=== PATIENT | female | born 1935 | race Caucasian/White ===

== ENCOUNTER 2016-10-31 15:02 | Outpatient (CLI) | payer MEDICARE ==
--- NOTE | 2016-10-31 21:45 | RAD ---
LUMBAR SPINE THREE VIEWS 10/31/1617 Grade I spondylolisthesis is seen of L4 on L5 and L5 on S1. There is disc space narrowing and degene rated disc at both of these levels. The etiology of this slippage is probably due to facet arthritis which is prominent here. The other disc spaces are normal in height. No acute fractures are seen. T he SI joints were symmetrical and normal in appearance, as were the hip joints. 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 MRI would be useful in assessing any neural impingement. POS: HOME
== END 2016-10-31 15:03 | disposition home or self-care (01) ==
LOC: BURRAD 15:02
PROVIDERS: ATTEND Family Medicine
DX: M54.5 Low back pain (principal); G89.29 Other chronic pain; M51.36 Other intervertebral disc degeneration, lumbar region
CPT/HCPCS: 72100

== ENCOUNTER 2017-05-10 05:38 | Emergency (ER) | payer MEDICARE ==
[2017-05-10 06:06] LABS: Bilirubin Negative (Negative); Blood, Urine Trace (Negative); Clarity Clear (Clear); Glucose, Urine (Dipstick) Negative (Negative); Leukocyte Trace (Negative); Nitrite Negative (Negative); Protein, Urine (Dipstick) Negative (Neg-Trace); Specific Gravity, Urine 1.015 (1.005-1.030); Urobilinogen 0.2 mg/dL (0.2-1.0); pH, Urine 7.5 (5.0-9.0)
[2017-05-10 06:28] LABS: Bacteria/HPF 1+ HPF (None Seen); RBC/HPF 0-3 HPF (0-3); Squamous Epithelial 0-3 HPF (0-3); WBC/HPF 0-3 HPF (0-3)
[2017-05-10] MEDS ORDERED: Ketorolac Tromethamine 30 MG/ML VIAL ONE (07:35)
--- NOTE | 2017-05-10 22:36 | CT ---
PRELIMINARY REPORT/[facility]/EMERGENCY AFTER HOURS PROCEDURE: EXAM: CT Abdomen and Pelvis Without Intravenous Contrast EXAM DATE/TIME: 05/10/2017 6:44 AM CLINICAL HISTORY: 81 years old, female; Pain; Other: Lt. Flank pain; Additional info: Hematuria TECHNIQUE: Axial computed tomography images of the abdomen and pelvis without intravenous contrast. All CT scan s at this facility use one or more dose reduction techniques, viz.: automated exposure control; ma/k V adjustment per patient size (including targeted exams where dose is matched to indication; i.e. he ad); or iterative reconstruction technique. Coronal and sagittal reformatted images were created and reviewed. COMPARISON: No relevant prior studies available. FINDINGS: Lower thorax: Small hiatal hernia is present. ABDOMEN: Liver: Unremarkable. Gallbladder and bile ducts: Calcified gallstones are present. No ductal dilation. Pancreas: Unremarkable. No ductal dilation. Spleen: Unremarkable. No splenomegaly. Adrenals: Unremarkable. No mass. Kidneys and ureters: Left renal cyst. No obstructing stones. No hydronephrosis. Stomach and bowel: Moderate feces is present throughout the colon. Diverticulosis is present with no CT evidence of diverticulitis. Inflammatory changes are present in the pericolic fat adjacent to pr oximal transverse colon. Diverticuli are present. Findings are compatible with diverticulitis. No ob struction. Appendix: The appendix is seen and is normal in appearance. PELVIS: Bladder: Unremarkable. No stones. Reproductive: Unremarkable as visualized. ABDOMEN and PELVIS: Intraperitoneal space: No abscess or free air identified. No significant fluid collection. Bones/joints: No acute fracture. No dislocation. Soft tissues: Unremarkable. Vasculature: Unremarkable. No abdominal aortic aneurysm. Lymph nodes: Unremarkable. No enlarged lymph nodes. IMPRESSION: 1. Findings compatible with diverticulitis involving the proximal transverse colon. 2. Remainder of findings as described above. Thank you for allowing us to participate in the care of your patient. Dictated and Authenticated by: Cheyenne Villaseñor MD 05/10/2017 7:35 AM Central Time ([place] \T\ [place]) FINAL REPORT CT ABDOMEN AND PELVIS WITH CONTRAST 05/10/[address] of the abdomen and pelvis was performed for evaluation of abdominal pain. Axial slices we re acquired without IV contrast. Coronal and sagittal reconstructions were done. The lung bases are clear. The liver, spleen, pancreas, and abdominal aorta showed no acute findings within the limitations of a non-contrast study. There may be a 1.6 cm fat-filled mass associated w ith the left adrenal gland, but I am not certain. Regarding the kidneys, there are several renal cy sts, particularly in the left kidney. The largest is 4.3 cm in size. There is no hydronephrosis, r enal calculi, or ureteral calculi appreciated. The gallbladder contains at least one large gallston e, if not several. There is a focal area of streaking around the proximal transverse colon where one sees some divertic niyah. Diverticulitis is suggested. Diverticula are seen elsewhere in the colon where there is no in flammatory streaking. There is no sign of obstruction. No free air or free fluid was present. CT of the pelvis shows a distended urinary bladder. There are no adnexal masses, inflammatory cardona es, or free fluid. Degenerative changes are seen in the spine. There is minor anterolisthesis of L4 on L5 which seems to be due to facet arthritis. IMPRESSION: 1. Findings suggestive of diverticulitis involving the proximal transverse colon. 2. Renal cysts, particularly on the left. No acute urinary tract findings. 3. Gallstones. 4. Incidental finding of small hiatal hernia. Report in agreement with preliminary reading by Dustin. POS: HOME
== END 2017-05-10 07:58 | disposition home or self-care (01) ==
LOC: BURERS 05:38
DX: K57.92 Diverticulitis of intestine, part unspecified, without perforation or abscess without bleeding (principal); Z79.82 Long term (current) use of aspirin; Z79.899 Other long term (current) drug therapy
CPT/HCPCS: 74176; 81003; 81015; 96372; J1885

== ENCOUNTER 2017-05-15 15:55 | Outpatient (CLI) | payer MEDICARE ==
--- NOTE | 2017-05-15 20:56 | RAD ---
LEFT KNEE FOUR VIEWS 05/15/17 No fracture or joint effusion was seen. Arthritic changes are minimal for age. Some arterial calcif ications are seen distal to the trifurcation. IMPRESSION: No acute finding. POS: HOME
== END 2017-05-15 15:56 | disposition home or self-care (01) ==
LOC: BURRAD 15:55
PROVIDERS: ATTEND Family Medicine
DX: M25.562 Pain in left knee (principal)

== ENCOUNTER 2021-02-13 19:21 | Emergency (ER) | payer MEDICARE ==
[2021-02-13 20:12] LABS: #Basophils 0.1 thou/uL (0.0-0.2); #Eosinphils 0.4 thou/uL (0.0-0.7); #Lymphocytes 1.7 thou/uL (1.20-3.40); #Neutrophils 5.4 thou/uL (1.40-6.50); %Eosinophils 5.2 % (0.0-10.0); %Monocytes 11.6 % (0.0-10.0); %Neutrophils 62.2 % (42.0-75.0); Hemoglobin 15.4 g/dL (12.0-16.0); Mean Corpuscular HGB CONC 33.2 g/dL (32.0-36.0); Mean Corpuscular Hemoglobin 30.6 pg (27.0-31.0); Mean Corpuscular Volume 92.1 fL (78.0-98.0); Mean Platelet Volume 8.7 fL (7.4-10.4); Platelet Count 190 thou/uL (130-400); Red Blood Cell (RBC) Count 5.05 mill/uL (4.20-5.40); White Blood Cell (WBC) Count 8.7 thou/uL (4.8-10.8)
[2021-02-13 20:26] LABS: ALT (SGPT) 17 U/L (8-55); AST (SGOT) 19 U/L (5-34); Albumin 4.3 g/dL (3.4-4.8); Alkaline Phosphatase 97 U/L (40-110); Anion Gap 17 mmol/L (10-20); BUN (Urea Nitrogen) 15 mg/dL (9.8-20.1); Bilirubin, Total 0.6 mg/dL (0.2-1.2); Calc. Creatinine Clearance 0 mL/min (70-130); Calcium 10.4 mg/dL (7.8-10.44); Carbon Dioxide 26 mmol/L (23-31); Chloride 103 mmol/L (98-107); Globulin 3.4 g/dL (2.4-3.5); Glucose 98 mg/dL (83-110); Potassium 5.2 mmol/L (3.5-5.1); Protein, Total 7.7 g/dL (5.8-8.1); Sodium 141 mmol/L (136-145)
[2021-02-13] MEDS ORDERED: predniSONE 20 MG TAB ONE (21:03)
== END 2021-02-13 21:12 | disposition home or self-care (01) ==
LOC: BURERS 19:21
DX: J06.9 Acute upper respiratory infection, unspecified (principal); I10 Essential (primary) hypertension; E78.5 Hyperlipidemia, unspecified; G45.9 Transient cerebral ischemic attack, unspecified; Z79.82 Long term (current) use of aspirin; Z79.899 Other long term (current) drug therapy
CPT/HCPCS: 36415; 71045; 80053; 83880; 84484; 85025; 87804; 93005; J7512; J7620

== ENCOUNTER 2021-07-12 10:23 | Emergency (ER) | payer MEDICARE | END 2021-07-12 11:40 | disposition home or self-care (01) | LOC: BURERS 10:23 | DX: S63.502A Unspecified sprain of left wrist, initial encounter (principal); S70.02XA Contusion of left hip, initial encounter; I10 Essential (primary) hypertension; E78.5 Hyperlipidemia, unspecified; I25.2 Old myocardial infarction; W19.XXXA Unspecified fall, initial encounter ==

== ENCOUNTER 2022-04-21 15:32 | Emergency (ER) | payer MEDICARE ==
[2022-04-21] MEDS ORDERED: Clindamycin 150 MG CAP ONE (18:11)
== END 2022-04-21 18:21 | disposition home or self-care (01) ==
LOC: BURERS 15:32
DX: J01.00 Acute maxillary sinusitis, unspecified (principal); E78.5 Hyperlipidemia, unspecified; I10 Essential (primary) hypertension; I25.2 Old myocardial infarction

== ENCOUNTER 2022-05-29 12:04 | Emergency (ER) | payer MEDICARE ==
[2022-05-29] MEDS ORDERED: Bacitracin 1 PK ONE (12:45)
[2022-05-29] MEDS ORDERED: Boostrix 0.5 ML (Tdap) VIAL (>/=7 yrs of age) ONE (12:45)
== END 2022-05-29 13:05 | disposition home or self-care (01) ==
LOC: BURERS 12:04
DX: S51.801D Unspecified open wound of right forearm, subsequent encounter (principal); I10 Essential (primary) hypertension; E78.5 Hyperlipidemia, unspecified; Z23 Encounter for immunization; I25.2 Old myocardial infarction; Z86.73 Personal history of transient ischemic attack (TIA), and cerebral infarction without residual deficits
CPT/HCPCS: 90471; 90715